=== PATIENT | female | born 1965 | race Caucasian/White ===

== ENCOUNTER 2017-09-05 07:32 | Day surgery (SDC) | payer OTHER ==
[2017-09-05] MEDS ORDERED: FENTAnyl 50 MCG/ML VIAL (09:37)
[2017-09-05] MEDS ORDERED: MIDAZOLAM 1 MG/ML 2 ML INJ ×3 (09:37)
== END 2017-09-05 14:27 | disposition home or self-care (01) ==
LOC: GIL 07:32
DX: Z12.11 Encounter for screening for malignant neoplasm of colon (principal); D12.6 Benign neoplasm of colon, unspecified
CPT/HCPCS: 45385; 88305

== ENCOUNTER 2017-10-10 06:39 | Day surgery (SDC) | payer OTHER ==
[2017-10-10] MEDS ORDERED: MIDAZOLAM 1 MG/ML 2 ML INJ ×2 (08:58)
[2017-10-10] MEDS ORDERED: FENTAnyl 50 MCG/ML VIAL (08:58)
== END 2017-10-10 16:19 | disposition home or self-care (01) ==
LOC: GIL 06:39
DX: K29.50 Unspecified chronic gastritis without bleeding (principal); K44.9 Diaphragmatic hernia without obstruction or gangrene; K22.10 Ulcer of esophagus without bleeding
CPT/HCPCS: 43239; 88305; 88312; 88313

== ENCOUNTER 2017-11-06 09:07 | Emergency (ER) | payer OTHER | END 2017-11-06 10:12 | disposition home or self-care (01) | LOC: E/R 09:07 | DX: J02.0 Streptococcal pharyngitis (principal) | CPT/HCPCS: 99283; Z7502 ==